=== PATIENT | male | born 1935 | race Caucasian/White ===

== ENCOUNTER → 2018-03-01 11:16 | Outpatient (CLI) | payer MEDICARE ==
[~2018-03-01 11:16] MED LIST: COUMADIN3 MG PO; CYPROHEPTADINE H4 MG PO; FLOMAX0.4 MG PO; HYDROCODONE-APA1 TAB PO; LINZESS145 MCG PO; PROSCAR5 MG PO; PROTONIX40 MG PO; REMERON15 MG PO; TEMAZEPAM30 MG PO; VESICARE5 MG PO; VITAMIN D3400 UNI1 PO; ZOFRAN ODT4 MG/UDTAB PO; [UNRECOGNIZED DRUG - OTHER]
[2018-03-01 11:55] LABS: BASOPHILS 0.3 % (0-2); EOSINOPHILS 2.1 % (0-7); HEMATOCRIT 43.8 % (42.0-54.0); HEMOGLOBIN 14.9 g/dL (13.5-17.5); IMMATURE GRANULOCYTES 0.1 % (0-5); LYMPHOCYTES 26.4 % (15-50); MCH 29.8 pg (26.0-34.0); MCV 87.6 fL (80.0-100.0); MEAN PLATELET VOLUME 10.3 fL (7.4-10.4); MONOCYTES 7.6 % (2-11); NEUTROPHILS 63.5 % (40-80); PLATELET COUNT 244 10x3/uL (130-400); RDW 13.8 % (11.5-14.5); WBC 8.7 10x3/uL (4.8-10.8)
[2018-03-01 11:58] LABS: INR 2.3 (0.85-1.17); PROTIME 24.7 SECONDS (11.6-15.0)
[2018-03-01 12:15] LABS: ALBUMIN 3.9 g/dL (3.4-5.0); ANION GAP 14.9 mmol/L (8-16); BILIRUBIN - TOTAL 1.4 mg/dL (0.2-1.3); CALCIUM 9.6 mg/dL (8.5-10.1); CARBON DIOXIDE 28.3 mmol/L (21.0-32.0); CHOL - HDL RATIO 2.2 ratio (2.3-4.9); CREATININE - SERUM 1.4 mg/dL (0.6-1.3); LDL-HDL RATIO 0.9 ratio (1.5-3.5); POTASSIUM - SERUM 4.2 mmol/L (3.5-5.1); PROTEIN - SERUM 7.4 g/dL (6.4-8.2); THYROID STIMULATING HORMONE 0.66 uIU/mL (0.36-3.74)
[2018-03-02 08:18] LABS: VITAMIN D 25 HYDROXY 25.5 ng/mL (30.0-100.0)
[2018-04-26 08:47] VITALS: BMI 17.6
== END | disposition home or self-care (01) ==
LOC: D.LAB 11:16
PROVIDERS: Family Medicine
DX: I26.99 Other pulmonary embolism without acute cor pulmonale (principal); K21.9 Gastro-esophageal reflux disease without esophagitis; R63.4 Abnormal weight loss; K56.7 Ileus, unspecified; E55.9 Vitamin D deficiency, unspecified; N40.0 Benign prostatic hyperplasia without lower urinary tract symptoms; Z51.81 Encounter for therapeutic drug level monitoring; Z79.01 Long term (current) use of anticoagulants; I82.409 Acute embolism and thrombosis of unspecified deep veins of unspecified lower extremity; F32.9 Major depressive disorder, single episode, unspecified; E53.8 Deficiency of other specified B group vitamins; E78.5 Hyperlipidemia, unspecified

== ENCOUNTER 2018-04-19 12:43 | Emergency (ER) | payer MEDICARE ==
--- NOTE | ~2018-04-19 | CN ---
PATIENT NAME:RAMÍREZ PATEL MEDICAL RECORD: [id number] : 35 LOCATION:.ER ADMIT DATE: ACCOUNT: [id number] CONSULTING PHYSICIAN: JOSE DE JESUS BIRCH MD REFERRING PHYSICIAN: MAYA STEVENSON MD DATE OF CONSULTATION: 04/19/2018 Surgery Consultation CHIEF COMPLAINT: Abdominal pain. HISTORY OF PRESENT ILLNESS: Mr. Patel is an 82-year-old white male who presented to the ER with an acute onset of severe abdominal pain with a palpable mass. The patient has a history of ventral hernia. This has been reducible in the past, but when he came out today it was not reducible and became very tender. This began late last night. He has never had a hernia worked on before. He had some nausea and vomiting. No changes in bowel function. No fevers or chills. PAST MEDICAL HISTORY: 1. Hypertension. 2. Bradycardia. 3. History of PVCs. MEDICATIONS: None. ALLERGIES: TO PENICILLIN, DEMEROL AND ASPIRIN. FAMILY HISTORY: Noncontributory. SOCIAL HISTORY: No tobacco or alcohol use. REVIEW OF SYSTEMS: GENERAL: He denies fevers, chills, weight gain or weight loss. CARDIOVASCULAR: No chest pain or shortness of breath. RESPIRATORY: No cough or wheezing. GASTROINTESTINAL: He has nausea, vomiting and abdominal pain, but no melena or hematochezia. HEMATOLOGIC: No known bleeding disorders. NEUROLOGIC: No headaches, seizures, strokes, or numbness. PHYSICAL EXAMINATION: VITAL SIGNS: Temperature 98, pulse 55, respirations 17, blood pressure 110/69, saturations 97% on room air. GENERAL: He is a thin male that appears cachectic, in no apparent distress. HEENT: Sclerae is nonicteric. HEART: Sinus bradycardia. LUNGS: No audible wheezing. ABDOMEN: Soft, but tender over the hernia, which is in the upper midline. This hernia is eventually reducible and there were noted to be 2 separate fascial defects present in this area. No hepatosplenomegaly. EXTREMITIES: No clubbing, cyanosis or edema. NEUROLOGICAL: Grossly intact. SKIN: No rashes, lesions or jaundice. CONSULT REPORT [id number] RAMÍREZ PATEL LABORATORY DATA: White count is 9.2, hemoglobin 14.3, platelets 171. INR 1.43. AST 22, ALT 19, bilirubin 1.24, BUN 18, creatinine 1. Lipase 56. Magnesium 1.5, potassium 3.7, lactic acid 1.8. ASSESSMENT AND PLAN: This is an 82-year-old with epigastric hernia. This was reducible in the ER, resolving some of his pain. We will discharge home and set up the patient for ventral hernia repair in the OR on 04/26/18. TRANSINT:[id number] Voice Confirmation ID: [id number] DOCUMENT ID: [id number] JOSE DE JESUS BIRCH MD at 1309 CC: [id number] DICTATION DATE: 04/25/181718 CREDENTIALING COORDINATOR: 04/25/18 194 DEP ER 04/19/18 [facility] [address] [place] [address]
[2018-04-19 13:42] LABS: BASOPHILS 0.1 % (0-2); EOSINOPHILS 0.1 % (0-7); HEMATOCRIT 42.1 % (42.0-54.0); HEMOGLOBIN 14.3 g/dL (13.5-17.5); IMMATURE GRANULOCYTES 0.2 % (0-5); MCV 88.4 fL (80.0-100.0); MEAN PLATELET VOLUME 11.4 fL (7.4-10.4); MONOCYTES 3.6 % (2-11); RBC 4.76 10x6/uL (4.20-6.10); RDW 14.3 % (11.5-14.5); WBC 9.2 10x3/uL (4.8-10.8)
[2018-04-19 13:48] LABS: APTT 33.6 SECONDS (22.8-39.4); INR 1.43 (0.85-1.17)
[2018-04-19 13:57] LABS: PLATELET COUNT 171 10x3/uL (130-400)
[2018-04-19 14:01] LABS: ALBUMIN 3.4 g/dL (3.4-5.0); ALKALINE PHOSPHATASE 76 U/L (46-116); ALT (SGPT) 19 U/L (10-68); BILIRUBIN - TOTAL 1.24 mg/dL (0.2-1.3); CALC OSMOLALITY 282 mosm/kg (275-300); CALCIUM 9.8 mg/dL (8.5-10.1); CARBON DIOXIDE 32.1 mmol/L (21.0-32.0); CHLORIDE - SERUM 100 mmol/L (98-107); CREATINE KINASE 23 UL (21-232); GLUCOSE 126 mg/dL (74-106); LIPASE 56 U/L (73-393); MAGNESIUM - SERUM 1.5 mg/dL (1.8-2.4); POTASSIUM - SERUM 3.7 mmol/L (3.5-5.1); PRO BNP 1584 pg/mL (0-450); SODIUM 140 mmol/L (136-145); UREA NITROGEN 18 mg/dL (7-18); eGFR NON AFRICAN AMERICAN 76 mL/min (90-120)
[2018-04-19 14:03] LABS: TROPONIN-I < 0.017 ng/mL (0.000-0.060)
[2018-04-26 08:47] VITALS: BMI 17.6
== END 2018-04-19 15:16 | disposition home or self-care (01) ==
LOC: D.ER 12:43
PROVIDERS: Family Medicine
DX: K46.9 Unspecified abdominal hernia without obstruction or gangrene (principal); R11.2 Nausea with vomiting, unspecified

== ENCOUNTER 2018-04-26 06:14 | Day surgery (SDC) | payer MEDICARE ==
[~2018-04-26] VITALS: Ht 182.9 cm; Wt 59.0 kg
--- NOTE | ~2018-04-26 | OP ---
PATIENT NAME: RAMÍREZ PATEL MEDICAL RECORD: [id number] :35 LOCATION:D.[facility] ADMISSION DATE: SURGEON: DAVID BIRCH MD DATE OF OPERATION: 04/26/2018 PREOPERATIVE DIAGNOSES: 1. Ventral incisional hernia. 2. Hypertension. 3. Bradycardia. 4. History of PVCs. POSTOPERATIVE DIAGNOSES: 1. Ventral incisional hernia. 2. Hypertension. 3. Bradycardia. 4. History of PVCs. PROCEDURE: Ventral hernia repair with [address] mesh. SURGEON: David Birch MD SMOKE JUMPER: Bhavna Myrick APRN REPORT OF PROCEDURE: The patient's abdomen was prepped and draped in sterile fashion. A midline incision was made in the upper abdomen overlying the area of herniation. The subcutaneous tissues were dissected free and we actually encountered 4 separate hernia defects. There was one larger one and encompassed most of the hernia defect. It was in the midline. There were 3 more just inferior to this, 2 of these were less than a centimeter in size and one of them was a little over a centimeter in greatest diameter. We removed all of the fascial bridges between these leaving a 3.4 x 4 cm defect. The undersurface of the fascia was cleared out in all directions. The patient did have a piece of balled up mesh present in the left upper quadrant from a previous ventral hernia repair. An [address] mesh was inserted in an underlay fashion and sutured down on all 4 sides using interrupted 0 Prolenes. The wound was then irrigated out with normal saline. The fascia was then closed transversely with running 0 Vicryl, incorporating bites of the mesh as we performed this closure. The wound was then irrigated out one last time and care was taken to assure there was no sign of any active bleeding. The subcutaneous tissues were reapproximated with interrupted 3-0 Vicryls and the skin was closed with running subcutaneous 5-0 Monocryl. A total of 10 mL of 0.25% Marcaine with epinephrine was infused into the surrounding tissues and the wound was dressed appropriately. COMPLICATIONS: None. CONDITION: Stable. ANESTHESIA: General endotracheal and local. BLOOD LOSS: 30 mL TRANSINT:[id number] Voice Confirmation ID: [id number] DOCUMENT ID: [id number] OPERATIVE REPORT [id number] JORGEDASHAWNDAVID MARIA MD at 1309 CC: KARAN BUCHANAN [id number] DICTATION DATE: 04/26/18 1102 MICROFILM OPERATOR: 04/26/18 1135 [facility] 04/26/18 [place] [id number] [place] [address]
[2018-04-26 07:02] LABS: BASOPHILS 0.3 % (0-2); EOSINOPHILS 4.1 % (0-7); HEMATOCRIT 37.7 % (42.0-54.0); HEMOGLOBIN 12.4 g/dL (13.5-17.5); IMMATURE GRANULOCYTES 0.2 % (0-5); LYMPHOCYTES 40.8 % (15-50); MCH 29.5 pg (26.0-34.0); MCHC 32.9 g/dL (31.0-37.0); MCV 89.8 fL (80.0-100.0); MEAN PLATELET VOLUME 11.1 fL (7.4-10.4); MONOCYTES 6.6 % (2-11); PLATELET COUNT 172 10x3/uL (130-400); RDW 14.5 % (11.5-14.5); WBC 6.4 10x3/uL (4.8-10.8)
[2018-04-26 07:07] LABS: APTT 28.7 SECONDS (22.8-39.4)
[2018-04-26 07:08] LABS: INR 1.03 (0.85-1.17); PROTIME 13.1 SECONDS (11.6-15.0)
[2018-04-26 07:21] LABS: CALC OSMOLALITY 290 mosm/kg (275-300); CALCIUM 9.2 mg/dL (8.5-10.1); CARBON DIOXIDE 34.8 mmol/L (21.0-32.0); CHLORIDE - SERUM 106 mmol/L (98-107); CREATININE - SERUM 0.9 mg/dL (0.6-1.3); GLUCOSE 89 mg/dL (74-106); SODIUM 146 mmol/L (136-145); UREA NITROGEN 14 mg/dL (7-18); eGFR NON AFRICAN AMERICAN 86 mL/min (90-120)
[2018-04-26] MEDS ORDERED: VESICARE5 MG PO (08:15)
[2018-04-26] MEDS ORDERED: PROTONIX40 MG PO (08:16)
[2018-04-26] MEDS ORDERED: LINZESS145 MCG PO (08:17)
[2018-04-26] MEDS ORDERED: COUMADIN3 MG PO (08:18)
[2018-04-26] MEDS ORDERED: CYPROHEPTADINE H4 MG PO (08:18)
[2018-04-26] MEDS ORDERED: REMERON15 MG PO (08:19)
[2018-04-26] MEDS ORDERED: TEMAZEPAM30 MG PO (08:20)
[2018-04-26] MEDS ORDERED: FLOMAX0.4 MG PO (08:21)
[2018-04-26] MEDS ORDERED: PROSCAR5 MG PO (08:22)
[2018-04-26] MEDS ORDERED: ZOFRAN ODT4 MG/UDTAB PO (08:22)
[2018-04-26] MEDS ORDERED: [UNRECOGNIZED DRUG - OTHER] ×2 (08:24→08:26)
[2018-04-26] MEDS ORDERED: VITAMIN D3400 UNI1 PO (08:28)
[2018-04-26 08:47] VITALS: BP 129/71; Ht 182.9 cm; Wt 59.0 kg
[2018-04-26] MEDS ORDERED: HYDROCODONE-APA1 TAB PO (10:57)
== END 2018-04-26 13:25 | disposition home or self-care (01) ==
LOC: D.OPS 06:14 → D.PAN 11:00 → D.OPS 11:00 → D.PAN 11:15 → D.OPS 11:15
PROVIDERS: Surgery
DX: K43.2 Incisional hernia without obstruction or gangrene (principal); I10 Essential (primary) hypertension; R00.1 Bradycardia, unspecified; I49.3 Ventricular premature depolarization; Z01.812 Encounter for preprocedural laboratory examination

== ENCOUNTER 2018-07-16 20:31 | Inpatient (IN) | payer MEDICARE ==
[~2018-07-16] VITALS: Ht 182.9 cm; Wt 40.8 kg
--- NOTE | ~2018-07-16 | EC ---
PATIENT:RAMÍREZ PATEL DATE OF SERVICE: 07/16/18 SEX: M MEDICAL RECORD: [id number] DATE OF : 35 LOCATION:D[facility] AGE OF PATIENT: 83 ADMISSION DATE: 07/16/18 REFERRING PHYSICIAN: INTERPRETING PHYSICIAN: BENITO LEE MD ECHOCARDIOGRAM REPORT ECHO CHARGES 4 ECHO COMPLETE Date: 07/20 CLINICAL DIAGNOSIS: POSSIBLE ENDOCARDITIS ECHOCARDIOGRAPHIC MEASUREMENTS (adult normal given) AC root (d.<3.7cm) 3.0 cm LV Septum d (<1.2 cm> 0.8 cm Valve Excursion 0.8 cm LV Septum (systole) 1.5 cm Left Atria (s.<4.0cm> 3.0 cm LVPW d(<1.2cm) 1.1 cm RV (d.<2.3cm) 3.0 cm LVPW (sytole) 1.8 cm LV diastole(<5.6CM) 6.1 cm MV E-F(>70mm/sec) cm LV systole 3.7 cm LVOT Diameter 1.9 cm MV exc.(>10mm) cm Est.ejection fraction (50-75%) % DOPPLER: LVIT cm/sec A 133 cm/sec E 102 cm/sec LA cm/sec RVSP 38.2 mmHg LVOT 119 cm/sec AOP1/2T m/s Asc. Ao 142 cm/sec RVOT 55.0 cm/sec RA cm/sec PA 80.0 cm/sec AV Gradient Peak 8.1 mmHg AV Mean 3.9 mmHg AV Area 2.1 cm MV Gradient Peak 6.9 mmHg MV Mean 2.1 mmHg MV Area cm COMMENTS: Cash Processing Specialist: 1 GRAZYNA DORA Cafeteria Clerk: 4 Dr. Lee TAPE# PACS Pericardial Effusion N DATE OF SERVICE: PROCEDURE: Transthoracic echocardiogram. CLINICAL DIAGNOSIS: Possible endocarditis. Quality of the study was probably not of high in a quality to rule out endocarditis on this study. FINDINGS: ECHOCARDIOGRAM REPORT [id number] RAMÍREZ PATEL 1. Left ventricle has ejection fraction of 55% to 60%. There is mild dilatation of the left ventricle. 2. The left atrium is normal size. 3. The mitral valve is thickened at the leaflets and cannot rule out a vegetation. 4. The tricuspid valve has a suspicious look up on the surface, again not a quality enough to rule in or out a vegetation, but there is a suspicious lesion. 5. The aortic valve appears to be structurally normal. There is no obvious vegetation seen. 6. Pulmonic valve is not well visualized. 7. There is trace aortic insufficiency. CONCLUSION: The patient has normal LV systolic function. There are no significant valvular abnormalities. There is trace to mild aortic insufficiency and mild to moderate mitral regurgitation and RVSP is upper limits of normal. However, there are 2 areas of suspicion possibly for endocarditis or vegetation and that is on both the mitral valve and tricuspid valve. I would recommend a transesophageal echocardiogram for definitive diagnosis if clinically indicated. TRANSINT:[id number] Voice Confirmation ID: [id number] DOCUMENT ID: [id number] BENITO LEE MD at 1456 CC: [id number] DICTATION DATE: 07/20/18 1535 PER DIEM INTERPRETER: 07/20/18 1642 ADM IN [facility] [address] [place] [address]
--- NOTE | ~2018-07-16 | HEMODYNAMI ---
PATIENT:RAMÍREZ PATEL MEDICAL RECORD: [id number] : 35 LOCATION:[facility] ADMISSION DATE: 07/16/18 Generatedon:07/23/201815:17 Patient name: RAMÍREZ PATEL Patient #: [id number] SSN: : 1935 Date of study: 07/23/2018 Page: Of Hemodynamic Procedure Report Patient Data Patient Demographics Procedure consent was obtained First Name: RAMÍREZ Gender: Male Last Name: JORGE : 1935 Patient #: [id number] Age: 83 year(s) Race: Unknown Additional ID: [id number] Contact details Address: [address] [place] [address] State: [place] City: [facility] Zip code: [address] Admission Admission Data Admission Date: 07/16/2018 Admission Time: 23:50 Room #: D.2232 Procedure Procedure Types Cath Procedure Peripheral Cath Diagnostic Procedure Miscellaneous Procedure Description Procedure Date Procedure Date: 07/23/2018 Procedure Start Time: 14:56 Procedure Staff Name Function Wally Wilcox MD Performing Physician Ramírez Crow RT Monitor Leeann Omalley RN Nurse Procedure Data Cath Procedure Fluoroscopy Diagnostic fluoroscopy Total fluoroscopy Time: 0.2 time: 0.2 min min Diagnostic fluoroscopy Total fluoroscopy dose: 4 dose: 4 mGy mGy Procedure Medications Medication Administration Route Dosage Lidocaine 1% added to field 20 Heparin Flush Bag added to field 1 bags (1000units/500ml NS) Hemodynamics Rest Pre Cath Intra NCS Post Cath Medications Time Medication Route Dose Verified Delivered Reason Notes Effec tiveness by by 15:06:50 Lidocaine 1% added 20ml Wally Lo used for to vial Brenden Wilcox MD procedure field 15:07:04 Heparin Flush added 1 Wally Lo used for Bag to bags Brenden Wilcox MD procedure (1000units/500ml field BARKER NS) Procedure Log Time Note 14:50:31 Ramírez Crow RT (R) (CV) sent for patient. Start room use. 14:50:47 PICC 14:50:48 Time tracking: Regular hours (M-F 7:00 - 5:00) 14:50:55 Patient received from Med/Surg to IR Alert and oriented. Tansferred to table in Supine position. 14:51:02 Signed procedure consent form obtained from guardian. 14:51:10 Use device set PICC 14:51:11 Bag Decanter (2002S) opened to sterile field. 14:51:11 Sterile Angiographic Pack opened to sterile field. 14:51:11 SHIELD Sorbaview ([id number]) opened to sterile field. 14:51:33 Pre-op teaching completed and patient verbalized understanding. 14:51:38 Right Arm area was prepped with chlora-prep and draped in sterile fashion 14:55:40 --------ALL STOP TIME OUT------ 14:55:41 Final Timeout: patient, procedure, and site verified with staff and physician. All members of the team are in agreement. 14:55:48 Right Arm area was prepped with chlora-prep and draped in sterile fashion 14:55:55 Sedation plan: Local Anesthetic Medication:Lidocaine 14:55:57 Sharps counted by scrub and verified by R.N. 14:56:23 Procedure started. 14:56:23 Full Disclosure recording started 14:56:28 Local anesthetic to right arm with Lidocaine 1% by Wally Wilcox MD.INITIAL ACCESS ONLY 14:57:01 Venous access obtained using ultrasound guidance. 14:57:11 PowerPICC 5Fr double lumen catheter opened to sterile field. 15:06:50 Lidocaine 1% 20ml vial added to field was administered by Wally Wilcox MD; used for procedure; 15:07:04 Heparin Flush Bag (1000units/500ml NS) 1 bags added to field was administered by Wally Wilcox MD; used for procedure; 15:09:47 PICC line was trimmed to 43cm and advanced to the superior vena cava.Position verified under fluoroscopy. 15:15:22 Procedure ended.(Physican Out) 15:15:31 Fluoroscopy time 00.20 minutes. 15:15:36 Fluoroscopy dose: 4 mGy 15:15:36 Flurop Dose total: 4 15:15:52 Post right arm:stable 15:15:56 Post procedure instruction explained to patient.Patient verbalizes understanding. 15:16:33 Report given to Med/Surg. 15:16:36 Patient transfered to Med/Surg with Bed. Device Usage Item Name Manufacture Quantity Catalog Hospital Part Current Minimal Lot# / Number Charge Number Stock Stock Serial# Code Bag Decanter Microtek 1 [id number] () [employer] Sterile Cardinal 1 [id number] 5 Angiographic [facility] 1 [id number] 5 Sorbaview ([id number]) PowerPICC Bard 1 [id number] 5 5Fr double lumen catheter Signature Audit [place] Stage Time Signature Unsigned Intra-Procedure 07/23/2018 Ramírez 3:17:31 PM Mignon RT (R) (CV) Signatures Monitor : Ramírez Signature : Mignon RT Date : Time : [place] [id number]
[2018-07-16] MEDS ORDERED: NEXIUM40 MG PO (20:42)
[2018-07-16] MEDS ORDERED: COUMADIN3 MG PO (20:45)
[2018-07-16] MEDS ORDERED: COSOPT EYE DROPS5 ML EACH EYE (20:46)
[2018-07-16] MEDS ORDERED: K-TAB10 MEQ PO (20:47)
[2018-07-16] MEDS ORDERED: LIPITOR10 MG PO (20:47)
[2018-07-16 21:24] LABS: BASOPHILS 0.1 % (0-2); EOSINOPHILS 0.4 % (0-7); HEMATOCRIT 36.7 % (42.0-54.0); HEMOGLOBIN 12.5 g/dL (13.5-17.5); IMMATURE GRANULOCYTES 0.2 % (0-5); LYMPHOCYTES 8.7 % (15-50); MCHC 34.1 g/dL (31.0-37.0); MCV 88.2 fL (80.0-100.0); MEAN PLATELET VOLUME 10.9 fL (7.4-10.4); MONOCYTES 6.7 % (2-11); NEUTROPHILS 83.9 % (40-80); RBC 4.16 10x6/uL (4.20-6.10); RDW 13.4 % (11.5-14.5); WBC 9.5 10x3/uL (4.8-10.8)
[2018-07-16 21:40] LABS: PLATELET COUNT 111 10x3/uL (130-400)
[2018-07-16 21:51] LABS: ALBUMIN 3.3 g/dL (3.4-5.0); ANION GAP 10.5 mmol/L (8-16); BILIRUBIN - TOTAL 1.11 mg/dL (0.2-1.3); CALCIUM 8.5 mg/dL (8.5-10.1); CARBON DIOXIDE 26.9 mmol/L (21.0-32.0); CREATININE - SERUM 1.1 mg/dL (0.6-1.3); POTASSIUM - SERUM 3.4 mmol/L (3.5-5.1); PROTEIN - SERUM 6.3 g/dL (6.4-8.2)
[2018-07-16 22:07] VITALS: BP 130/84
[2018-07-16 22:08] LABS: APPEARANCE HAZY (CLEAR); COLOR YELLOW (YELLOW)
[2018-07-16 22:09] LABS: BILIRUBIN NEGATIVE (NEGATIVE); GLUCOSE NEGATIVE (NEGATIVE); KETONE NEGATIVE (NEGATIVE); NITRITE POSITIVE (NEGATIVE); PROTEIN TRACE mg/dL (NEGATIVE); UROBILINOGEN NORMAL (NORMAL)
[2018-07-16 22:10] LABS: BACTERIA FEW /hpf (NONE SEEN); WHITE CELLS - URINE >50 /hpf (0-5)
[2018-07-16 23:15] VITALS: BP 130/81
[2018-07-17] VITALS: BP 120/77
[2018-07-17 04:27] VITALS: BP 124/64
[2018-07-17 04:45] VITALS: BP 105/61; BMI 12.2
[2018-07-17 06:31] LABS: BASOPHILS 0 % (0-2); EOSINOPHILS 0 % (0-7); HEMATOCRIT 33.3 % (42.0-54.0); HEMOGLOBIN 11.1 g/dL (13.5-17.5); IMMATURE GRANULOCYTES 0.3 % (0-5); LYMPHOCYTES 13.2 % (15-50); MCH 29.5 pg (26.0-34.0); MCHC 33.3 g/dL (31.0-37.0); MCV 88.6 fL (80.0-100.0); MEAN PLATELET VOLUME 11.4 fL (7.4-10.4); MONOCYTES 6.4 % (2-11); NEUTROPHILS 80.1 % (40-80); PLATELET COUNT 127 10x3/uL (130-400); RBC 3.76 10x6/uL (4.20-6.10); RDW 13.8 % (11.5-14.5); WBC 11.2 10x3/uL (4.8-10.8)
[2018-07-17 06:54] LABS: ANION GAP 10.7 mmol/L (8-16); CARBON DIOXIDE 25.8 mmol/L (21.0-32.0); CREATININE - SERUM 1.1 mg/dL (0.6-1.3); POTASSIUM - SERUM 3.5 mmol/L (3.5-5.1)
[2018-07-17 09:02] LABS: INR 2.43 (0.85-1.17); PROTIME 25.4 SECONDS (11.6-15.0)
[2018-07-17 12:01] VITALS: BMI 12.2
[2018-07-17 13:34] VITALS: Ht 182.9 cm; Wt 40.8 kg
[2018-07-17 21:06] VITALS: BP 131/62
[2018-07-18 04:56] VITALS: BP 148/68
[2018-07-18 07:32] LABS: ALBUMIN 2.7 g/dL (3.4-5.0); ALKALINE PHOSPHATASE 64 U/L (46-116); BILIRUBIN - TOTAL 1.64 mg/dL (0.2-1.3); CALC OSMOLALITY 289 mosm/kg (275-300); CARBON DIOXIDE 24.8 mmol/L (21.0-32.0); CHLORIDE - SERUM 109 mmol/L (98-107); GLUCOSE 118 mg/dL (74-106); SODIUM 144 mmol/L (136-145); UREA NITROGEN 18 mg/dL (7-18); eGFR NON AFRICAN AMERICAN 76 mL/min (90-120)
[2018-07-18 07:33] LABS: ALT (SGPT) 15 U/L (10-68)
[2018-07-18 09:00] VITALS: BP 131/85
[2018-07-18 11:45] VITALS: BP 127/76
[2018-07-18 15:46] VITALS: BP 119/62
[2018-07-18 20:00] VITALS: BP 162/83
[2018-07-19] VITALS: BP 145/104; BP 151/74
[2018-07-19 04:00] VITALS: BP 146/75
[2018-07-19 06:47] LABS: BASOPHILS 0.1 % (0-2); EOSINOPHILS 0 % (0-7); HEMATOCRIT 36.1 % (42.0-54.0); IMMATURE GRANULOCYTES 0.1 % (0-5); LYMPHOCYTES 20.2 % (15-50); MCH 29.8 pg (26.0-34.0); MCHC 33.2 g/dL (31.0-37.0); MCV 89.6 fL (80.0-100.0); MEAN PLATELET VOLUME 10.8 fL (7.4-10.4); MONOCYTES 8.4 % (2-11); NEUTROPHILS 71.2 % (40-80); PLATELET COUNT 126 10x3/uL (130-400); RBC 4.03 10x6/uL (4.20-6.10); RDW 13.7 % (11.5-14.5); WBC 11.1 10x3/uL (4.8-10.8)
[2018-07-19 07:08] LABS: CALC OSMOLALITY 281 mosm/kg (275-300); CALCIUM 8.4 mg/dL (8.5-10.1); CARBON DIOXIDE 27.5 mmol/L (21.0-32.0); CHLORIDE - SERUM 107 mmol/L (98-107); GLUCOSE 84 mg/dL (74-106); MAGNESIUM - SERUM 1.6 mg/dL (1.8-2.4); PHOSPHOROUS 2.1 mg/dL (2.5-4.9); SODIUM 141 mmol/L (136-145); UREA NITROGEN 17 mg/dL (7-18); eGFR NON AFRICAN AMERICAN 76 mL/min (90-120)
[2018-07-19 07:09] LABS: POTASSIUM - SERUM 3.9 mmol/L (3.5-5.1)
[2018-07-19 16:14] VITALS: BP 127/91
[2018-07-19 20:00] VITALS: BP 147/72
[2018-07-20] VITALS: BP 120/60
[2018-07-20 04:00] VITALS: BP 134/70
[2018-07-20 06:42] LABS: BASOPHILS 0.1 % (0-2); EOSINOPHILS 0.3 % (0-7); HEMATOCRIT 34.2 % (42.0-54.0); HEMOGLOBIN 11.2 g/dL (13.5-17.5); IMMATURE GRANULOCYTES 0.1 % (0-5); LYMPHOCYTES 24.1 % (15-50); MCH 29.1 pg (26.0-34.0); MCHC 32.7 g/dL (31.0-37.0); MCV 88.8 fL (80.0-100.0); MEAN PLATELET VOLUME 11.5 fL (7.4-10.4); MONOCYTES 9.2 % (2-11); NEUTROPHILS 66.2 % (40-80); PLATELET COUNT 127 10x3/uL (130-400); RBC 3.85 10x6/uL (4.20-6.10); RDW 13.6 % (11.5-14.5); WBC 8.7 10x3/uL (4.8-10.8)
[2018-07-20 06:46] LABS: INR 4.66 (0.85-1.17)
[2018-07-20 06:49] LABS: CALC OSMOLALITY 284 mosm/kg (275-300); CALCIUM 8.1 mg/dL (8.5-10.1); CARBON DIOXIDE 29.4 mmol/L (21.0-32.0); CHLORIDE - SERUM 109 mmol/L (98-107); CREATININE - SERUM 0.8 mg/dL (0.6-1.3); GLUCOSE 93 mg/dL (74-106); MAGNESIUM - SERUM 1.8 mg/dL (1.8-2.4); SODIUM 142 mmol/L (136-145); UREA NITROGEN 18 mg/dL (7-18); eGFR NON AFRICAN AMERICAN > 90 mL/min (90-120)
[2018-07-20 07:14] LABS: PHOSPHOROUS 1.5 mg/dL (2.5-4.9); POTASSIUM - SERUM 3.3 mmol/L (3.5-5.1)
[2018-07-20 09:03] VITALS: BP 126/63
[2018-07-20 13:21] LABS: APPEARANCE HAZY (CLEAR); BILIRUBIN NEGATIVE (NEGATIVE); COLOR YELLOW (YELLOW); GLUCOSE NEGATIVE (NEGATIVE); KETONE LARGE mg/dL (NEGATIVE); NITRITE NEGATIVE (NEGATIVE); PROTEIN TRACE mg/dL (NEGATIVE); SPECIFIC GRAVITY 1.025 (1.005-1.020); UROBILINOGEN NORMAL (NORMAL)
[2018-07-20 13:22] LABS: BACTERIA FEW /hpf (NONE SEEN); CALCIUM OXALATE CRYSTALS OCC /hpf (NONE SEEN); EPITHELIAL CELLS OCC /hpf (0-5); HYALINE CAST OCC /lpf (NONE SEEN); WHITE CELLS - URINE 25-50 /hpf (0-5)
[2018-07-20 20:00] VITALS: BP 159/83
[2018-07-21] VITALS: BP 166/71
[2018-07-21 04:00] VITALS: BP 163/71
[2018-07-21 06:51] VITALS: BP 147/72
[2018-07-21 09:37] LABS: BASOPHILS 0.4 % (0-2); EOSINOPHILS 0.5 % (0-7); HEMATOCRIT 35.7 % (42.0-54.0); HEMOGLOBIN 11.6 g/dL (13.5-17.5); IMMATURE GRANULOCYTES 0.2 % (0-5); LYMPHOCYTES 27.5 % (15-50); MCH 29.7 pg (26.0-34.0); MCHC 32.5 g/dL (31.0-37.0); MEAN PLATELET VOLUME 11.5 fL (7.4-10.4); MONOCYTES 7.9 % (2-11); NEUTROPHILS 63.5 % (40-80); PLATELET COUNT 132 10x3/uL (130-400); RBC 3.91 10x6/uL (4.20-6.10); RDW 13.4 % (11.5-14.5); WBC 8.1 10x3/uL (4.8-10.8)
[2018-07-21 09:38] LABS: MCV 91.3 fL (80.0-100.0)
[2018-07-21 09:56] LABS: CALC OSMOLALITY 279 mosm/kg (275-300); CALCIUM 8.1 mg/dL (8.5-10.1); CARBON DIOXIDE 26.9 mmol/L (21.0-32.0); CHLORIDE - SERUM 107 mmol/L (98-107); CREATININE - SERUM 0.7 mg/dL (0.6-1.3); GLUCOSE 97 mg/dL (74-106); MAGNESIUM - SERUM 1.7 mg/dL (1.8-2.4); SODIUM 140 mmol/L (136-145); UREA NITROGEN 16 mg/dL (7-18); eGFR NON AFRICAN AMERICAN > 90 mL/min (90-120)
[2018-07-21 09:58] LABS: POTASSIUM - SERUM 4.3 mmol/L (3.5-5.1)
[2018-07-21 12:49] VITALS: BP 97/64
[2018-07-21 20:00] VITALS: BP 137/72
[2018-07-22] VITALS: BP 139/60
[2018-07-22 04:00] VITALS: BP 146/71
[2018-07-22 06:48] LABS: BASOPHILS 0.1 % (0-2); HEMATOCRIT 32.7 % (42.0-54.0); HEMOGLOBIN 10.9 g/dL (13.5-17.5); IMMATURE GRANULOCYTES 0.4 % (0-5); MCH 29.5 pg (26.0-34.0); MCHC 33.3 g/dL (31.0-37.0); MCV 88.4 fL (80.0-100.0); MEAN PLATELET VOLUME 11.5 fL (7.4-10.4); MONOCYTES 6.7 % (2-11); NEUTROPHILS 64.8 % (40-80); PLATELET COUNT 134 10x3/uL (130-400); RDW 13.3 % (11.5-14.5)
[2018-07-22 07:06] LABS: CALC OSMOLALITY 279 mosm/kg (275-300); CARBON DIOXIDE 27.4 mmol/L (21.0-32.0); CHLORIDE - SERUM 107 mmol/L (98-107); CREATININE - SERUM 0.6 mg/dL (0.6-1.3); GLUCOSE 112 mg/dL (74-106); POTASSIUM - SERUM 4.2 mmol/L (3.5-5.1); SODIUM 139 mmol/L (136-145); UREA NITROGEN 14 mg/dL (7-18); eGFR NON AFRICAN AMERICAN > 90 mL/min (90-120)
[2018-07-22 07:08] LABS: PHOSPHOROUS 1.5 mg/dL (2.5-4.9)
[2018-07-22 11:28] VITALS: BP 137/78
[2018-07-22 15:43] VITALS: BP 139/61
[2018-07-22 21:04] VITALS: BP 150/79
[2018-07-23 04:00] VITALS: BP 133/73
[2018-07-23 08:57] VITALS: BP 149/72
[2018-07-23 13:24] VITALS: BP 134/73
[2018-07-23 14:34] LABS: APTT 34.4 SECONDS (22.8-39.4); INR 1.1 (0.85-1.17); PROTIME 13.8 SECONDS (11.6-15.0)
[2018-07-23 20:00] VITALS: BP 134/77
[2018-07-24 04:56] VITALS: BP 124/68
[2018-07-24 09:07] LABS: BASOPHILS 0.2 % (0-2); CALC OSMOLALITY 269 mosm/kg (275-300); CALCIUM 8.6 mg/dL (8.5-10.1); CARBON DIOXIDE 27.6 mmol/L (21.0-32.0); CHLORIDE - SERUM 102 mmol/L (98-107); CREATININE - SERUM 0.8 mg/dL (0.6-1.3); EOSINOPHILS 2.4 % (0-7); GLUCOSE 82 mg/dL (74-106); HEMATOCRIT 35.2 % (42.0-54.0); HEMOGLOBIN 11.9 g/dL (13.5-17.5); IMMATURE GRANULOCYTES 0.5 % (0-5); LYMPHOCYTES 25.4 % (15-50); MAGNESIUM - SERUM 1.5 mg/dL (1.8-2.4); MCH 29.5 pg (26.0-34.0); MCHC 33.8 g/dL (31.0-37.0); MCV 87.3 fL (80.0-100.0); NEUTROPHILS 65.5 % (40-80); PHOSPHOROUS 3.1 mg/dL (2.5-4.9); POTASSIUM - SERUM 4.3 mmol/L (3.5-5.1); RBC 4.03 10x6/uL (4.20-6.10); RDW 13.1 % (11.5-14.5); SODIUM 136 mmol/L (136-145); UREA NITROGEN 9 mg/dL (7-18); WBC 8.9 10x3/uL (4.8-10.8); eGFR NON AFRICAN AMERICAN > 90 mL/min (90-120)
[2018-07-24 09:10] VITALS: BP 142/67
[2018-07-24 09:29] LABS: PLATELET COUNT 228 10x3/uL (130-400)
[2018-07-24] MEDS ORDERED: FLORAJEN3 CAPS460 MG PO (12:44)
[2018-07-24] MEDS ORDERED: VANCOMYCIN 750750 MG IV (12:50)
[2018-07-24 13:39] VITALS: BP 112/65
== END 2018-07-24 14:54 | disposition short-term general hospital (02) | DRG 288 ==
LOC: D.ER 20:31 → D.MS 23:50
PROVIDERS: Family Medicine; General Practice; Student in an Organized Health Care Education/Training Program
PROC: B244ZZZ Ultrasonography of Right Heart (ICD-10-PCS; 2018-07-23)
PROC: 02H633Z Insertion of Infusion Device into Right Atrium, Percutaneous Approach (ICD-10-PCS; principal; 2018-07-23 14:30)
DX: I33.0 Acute and subacute infective endocarditis (principal); E43 Unspecified severe protein-calorie malnutrition; N39.0 Urinary tract infection, site not specified; F05 Delirium due to known physiological condition; Z68.1 Body mass index [BMI] 19.9 or less, adult; M81.0 Age-related osteoporosis without current pathological fracture; R54 Age-related physical debility; N40.1 Benign prostatic hyperplasia with lower urinary tract symptoms; Z66 Do not resuscitate; R33.8 Other retention of urine; H40.9 Unspecified glaucoma; E78.5 Hyperlipidemia, unspecified; K59.00 Constipation, unspecified; G89.29 Other chronic pain; M54.5 Low back pain; R63.0 Anorexia; G47.00 Insomnia, unspecified; Z72.0 Tobacco use; E87.6 Hypokalemia; E83.42 Hypomagnesemia; E83.39 Other disorders of phosphorus metabolism; B02.9 Zoster without complications; Z86.711 Personal history of pulmonary embolism; Z86.718 Personal history of other venous thrombosis and embolism; D33.3 Benign neoplasm of cranial nerves; B95.1 Streptococcus, group B, as the cause of diseases classified elsewhere; B95.62 Methicillin resistant Staphylococcus aureus infection as the cause of diseases classified elsewhere